=== PATIENT | male | born 1970 | race Caucasian/White ===

== ENCOUNTER 2021-03-24 13:20 | Emergency (ER) | payer OTHER ==
[2021-03-24 15:04] LABS: HEMOGLOBIN 14.1 gm/dl (14.0-17.5); RED BLOOD COUNT 4.58 M/UL (4.20-5.50); WHITE BLOOD COUNT 8.7 K/UL (4.5-11.0)
[2021-03-24 15:20] LABS: BUN/CREATININE RATIO 14 (0-10)
[2021-03-24] MEDS ORDERED: HYDROCODON-ACE1 EAC4 PO (18:04)
[2021-03-24] MEDS ORDERED: CEPHALEXIN500 MG PO (18:04)
== END 2021-03-24 18:23 | disposition home or self-care (01) ==
LOC: ER1 13:20
PROVIDERS: Physician Assistant
DX: L03.311 Cellulitis of abdominal wall (principal); I11.9 Hypertensive heart disease without heart failure; E78.5 Hyperlipidemia, unspecified; E11.9 Type 2 diabetes mellitus without complications; F17.200 Nicotine dependence, unspecified, uncomplicated; Z95.0 Presence of cardiac pacemaker
CPT/HCPCS: 80053; 85025; 99284; Q9967